=== PATIENT | female | born 1975 | race Caucasian/White ===

== ENCOUNTER 2017-11-15 00:09 | Emergency (ER) | payer SELFPAY ==
[2017-11-15] MEDS: morphine 4 MG/ML VIAL IM (01:08)
== END 2017-11-15 01:44 | disposition home or self-care (01) ==
LOC: FTE 00:09
DX: S69.91XA Unspecified injury of right wrist, hand and finger(s), initial encounter (principal); X58.XXXA Exposure to other specified factors, initial encounter; Y92.9 Unspecified place or not applicable
CPT/HCPCS: 96372; 99284-25